=== PATIENT | male | born 1950 | race Caucasian/White ===

== ENCOUNTER 2021-07-30 19:31 | Inpatient (IN) | payer MEDICARE, SELFPAY ==
[~2021-07-30 19:31] MED LIST: Fentanyl 100 MCG/2 ML VIAL ONE; Propofol 1,000 MG/100 ML VIAL IV ONE
[2021-07-30] MEDS ORDERED: Ondansetron PF 4 MG/2 ML Vial IVP PRN (19:36)
[2021-07-30] MEDS ORDERED: Propofol 1,000 MG/100 ML VIAL IV PRN (19:41)
[2021-07-30] MEDS ORDERED: Labetalol HCl 100 MG/20 ML VIAL SLOW IVP PRN (19:44)
[2021-07-30] MEDS ORDERED: fentaNYL Citrate-0.9 % NaCl/PF 100 ML IVPB SCH (20:45)
[2021-07-30] MEDS ORDERED: Ventilator Sedation Protocol 1 EACH FS SCH (20:45)
[2021-07-30] MEDS ORDERED: Fentanyl 100 MCG/2 ML VIAL SLOW IVP SCH (21:15)
[2021-07-30] MEDS ORDERED: Fentanyl BOLUS 250 ML IVPB PRN (21:30)
[2021-07-30] MEDS ORDERED: Morphine 2 MG/ML VIAL SLOW IVP PRN (21:30)
[2021-07-30] MEDS ORDERED: DISCONTINUE PREVIOUS NARCOTIC PAIN MEDICATIONS AND BENZODIAZEPINES FS SCH (21:30)
[2021-07-30] MEDS ORDERED: Propofol BOLUS 1,000 MG/100 ML VIAL IV PRN (21:30)
[2021-07-30] MEDS ORDERED: Lorazepam 2 MG/ML VIAL SLOW IVP PRN (21:30)
[2021-07-30 21:43] LABS: Actual Bicarbonate (HCO3a) 26.7 mEq/L (22-28); Base Excess (BEa) 0.4 mEq/L (-2.0 to +3.0); CO2 Tension 49.6 mmHg (35.0-45.0); Carboxyhemoglobin (COHb) 0.8 gm% (0.0-3.0); Hemoglobin (Hb) 13.9 g/dL (14.0-18.0); O2 Tension (PaO2), arterial 67.8 mmHg (> 70.0); Potassium - ABG Lab 4.3 mmol/L (3.70-5.30); Puncture Site RRA; pH, Arterial 7.35 (7.35-7.45)
[2021-07-30] MEDS: Famotidine/PF 20 mg/2ml Vial SLOW IVP SCH (22:13)
[2021-07-30] MEDS: Acyclovir Sodium 800 MG in Sodium Chloride 0.9% 250 ML 250 ML IVPB SCH (22:13)
[2021-07-30] MEDS: Nicotine 21 MG PATCH TD SCH (22:14)
[2021-07-30] MEDS: Propofol 1,000 MG/100 ML VIAL IV PRN (22:16)
[2021-07-30] MEDS ORDERED: Piperacillin/Tazobactam 3.375 GM in Sodium Chloride 0.9% 100 ML IVPB SCH (23:00)
[2021-07-31] MEDS ORDERED: Dextrose 50% Abboject 50 ML SYRINGE ONE (00:53)
[2021-07-31] MEDS ORDERED: Dextrose 50% Abboject 50 ML SYRINGE SLOW IVP SCH (01:15)
[2021-07-31] MEDS: Propofol 1,000 MG/100 ML VIAL IV PRN ×2 (02:56→06:36)
[2021-07-31 04:06] LABS: Hemoglobin 12.7 g/dL (13.5-17.5); Mean Corpuscular HGB CONC 31.8 g/dL (32.0-36.0); Mean Corpuscular Hemoglobin 30.9 pg (27.0-33.0); Mean Corpuscular Volume 97.3 fl (81.2-95.1); Mean Platelet Volume 10.2 fl (7.4-10.4); Platelet Count 146 10x3/uL (150-450); RBC Distribution Width 13.4 % (11.5-14.5); Red Blood Cell (RBC) Count 4.11 10x6/uL (4.32-5.72); White Blood Cell (WBC) Count 7.3 10x3/uL (3.5-10.5)
[2021-07-31 04:08] LABS: ALT (SGPT) 19 U/L (8-55); AST (SGOT) 16 U/L (5-34); Albumin 3.1 g/dL (3.4-4.8); Alkaline Phosphatase 83 U/L (40-110); Anion Gap 12 mmol/L (10-20); BUN (Urea Nitrogen) 16 mg/dL (8.4-25.7); Bilirubin, Total 0.4 mg/dL (0.2-1.2); CK (CPK) 134 U/L (30-200); Calc. Creatinine Clearance 67 mL/min (70-130); Calcium 9.2 mg/dL (7.8-10.44); Carbon Dioxide 26 mmol/L (23-31); Chloride 104 mmol/L (98-107); Globulin 1.8 g/dL (2.4-3.5); Glucose 85 mg/dL (80-115); Magnesium 2.1 mg/dL (1.6-2.6); Potassium 4.3 mmol/L (3.5-5.1); Protein, Total 4.9 g/dL (5.8-8.1); Sodium 138 mmol/L (136-145)
[2021-07-31] MEDS: Acyclovir Sodium 800 MG in Sodium Chloride 0.9% 250 ML 250 ML IVPB SCH ×3 (05:10→21:42)
[2021-07-31] MEDS: Piperacillin/Tazobactam 3.375 GM in Sodium Chloride 0.9% 100 ML IVPB SCH ×3 (05:10→21:30)
[2021-07-31 07:21] LABS: Band 11 % (5-11); Eosinophils 4 % (0-10); Lymphocytes 15 % (21-51); Reactive Lymphocytes 5 % (0-10)
[2021-07-31 07:24] LABS: Neutrophil 50 % (42-75)
[2021-07-31 07:25] LABS: Monocytes 14 % (0-10); Platelet Morphology Comment Appears Adequate
[2021-07-31 07:26] LABS: MDiff Complete? YES; RBC Morphology Normal
[2021-07-31 07:36] LABS: Actual Bicarbonate (HCO3a) 26.4 mEq/L (22-28); Base Excess (BEa) -0.1 mEq/L (-2.0 to +3.0); CO2 Tension 50.2 mmHg (35.0-45.0); Calcium, Ionized (arterial) 1.11 mmol/L (1.12-1.30); Carboxyhemoglobin (COHb) 0.9 gm% (0.0-3.0); O2 Tension (PaO2), arterial 59.2 mmHg (> 70.0); Potassium - ABG Lab 4.1 mmol/L (3.70-5.30); Puncture Site Other Site; pH, Arterial 7.34 (7.35-7.45)
[2021-07-31] MEDS: Enoxaparin Sodium 40 MG/0.4 ML SYRINGE SC SCH (08:28)
[2021-07-31] MEDS: Famotidine/PF 20 mg/2ml Vial SLOW IVP SCH ×2 (08:28→21:30)
[2021-07-31] MEDS: Dexmedetomidine In 0.9 % NaCl 100 ML IVPB SCH (12:06)
[2021-07-31] MEDS ORDERED: Metoprolol Tartrate 5 MG/5 ML VIAL IVP ONE (16:01)
[2021-07-31] MEDS ORDERED: Metoprolol Tartrate 5 MG/5 ML VIAL ONE (16:04)
[2021-07-31] MEDS: Sodium Chloride 0.9% 1,000 ML IV SCH (16:15)
[2021-07-31 18:21] LABS: Magnesium 2.2 mg/dL (1.6-2.6)
[2021-07-31 20:47] LABS: Magnesium 2.2 mg/dL (1.6-2.6)
[2021-07-31] MEDS: Nicotine 21 MG PATCH TD SCH (21:31)
[2021-08-01] MEDS: Sodium Chloride 0.9% 1,000 ML IV SCH ×3 (02:15→20:33)
[2021-08-01] MEDS: Piperacillin/Tazobactam 3.375 GM in Sodium Chloride 0.9% 100 ML IVPB SCH ×3 (03:50→20:29)
[2021-08-01] MEDS: hydrALAZINE 20 MG/ML VIAL SLOW IVP PRN ×2 (04:15→10:52)
[2021-08-01] MEDS: Acyclovir Sodium 800 MG in Sodium Chloride 0.9% 250 ML 250 ML IVPB SCH ×3 (05:16→21:53)
[2021-08-01] MEDS: Dexmedetomidine In 0.9 % NaCl 100 ML IVPB SCH ×2 (06:36→16:06)
[2021-08-01] MEDS: Metoprolol Tartrate 5 MG/5 ML VIAL IVP PRN ×2 (06:36→14:06)
[2021-08-01 07:12] LABS: Anion Gap 19 mmol/L (10-20); BUN (Urea Nitrogen) 15 mg/dL (8.4-25.7); Calc. Creatinine Clearance 61 mL/min (70-130); Calcium 9.9 mg/dL (7.8-10.44); Carbon Dioxide 22 mmol/L (23-31); Chloride 107 mmol/L (98-107); Glucose 101 mg/dL (80-115); Sodium 144 mmol/L (136-145)
[2021-08-01 07:18] LABS: #Basophils 0.1 10x3/uL (0.0-0.2); #Eosinphils 0.1 10x3/uL (0.0-0.5); #Monocytes 1.1 10x3/uL (0.0-1.1); #Neutrophils 6.2 10x3/uL (1.5-8.4); %Basophils 0.6 % (0.0-2.0); %Lymphocytes 14.2 % (18.0-47.0); %Monocytes 12.8 % (0.0-10.0); %Neutrophils 70.8 % (40.0-75.0); Mean Corpuscular HGB CONC 32.9 g/dL (32.0-36.0); Mean Corpuscular Hemoglobin 31.3 pg (27.0-33.0); Platelet Count 179 10x3/uL (150-450); RBC Distribution Width 13.2 % (11.5-14.5); White Blood Cell (WBC) Count 8.7 10x3/uL (3.5-10.5)
[2021-08-01 07:29] LABS: HIV (1/2) Antibody/Antigen Non-Reactive (NonReactive); HIV 1/2 INDEX 0.09 S/CO (<1.00)
[2021-08-01] MEDS: Enoxaparin Sodium 40 MG/0.4 ML SYRINGE SC SCH (08:12)
[2021-08-01] MEDS: Famotidine/PF 20 mg/2ml Vial SLOW IVP SCH ×2 (08:12→21:53)
[2021-08-01] MEDS: chlordiazePOXIDE HCl 5 MG CAP PO SCH ×2 (14:07→21:53)
[2021-08-01] MEDS: Nicotine 21 MG PATCH TD SCH (21:53)
[2021-08-02] MEDS: Piperacillin/Tazobactam 3.375 GM in Sodium Chloride 0.9% 100 ML IVPB SCH ×3 (03:47→20:25)
[2021-08-02] MEDS: Dexmedetomidine In 0.9 % NaCl 100 ML IVPB SCH (03:54)
[2021-08-02] MEDS: Acyclovir Sodium 800 MG in Sodium Chloride 0.9% 250 ML 250 ML IVPB SCH ×2 (05:16→14:47)
[2021-08-02] MEDS: Sodium Chloride 0.9% 1,000 ML IV SCH ×2 (08:11→20:26)
[2021-08-02] MEDS: Enoxaparin Sodium 40 MG/0.4 ML SYRINGE SC SCH (09:02)
[2021-08-02] MEDS: Famotidine/PF 20 mg/2ml Vial SLOW IVP SCH ×2 (09:02→20:29)
[2021-08-02] MEDS: chlordiazePOXIDE HCl 5 MG CAP PO SCH ×3 (09:16→20:21)
[2021-08-02] MEDS: Metoprolol Tartrate 5 MG/5 ML VIAL IVP PRN (11:09)
[2021-08-02 12:26] LABS: Anion Gap 14 mmol/L (10-20); BUN (Urea Nitrogen) 13 mg/dL (8.4-25.7); Calc. Creatinine Clearance 68 mL/min (70-130); Calcium 9.2 mg/dL (7.8-10.44); Carbon Dioxide 23 mmol/L (23-31); Chloride 109 mmol/L (98-107); Glucose 113 mg/dL (80-115); Magnesium 2.2 mg/dL (1.6-2.6); Potassium 3.8 mmol/L (3.5-5.1); Sodium 142 mmol/L (136-145)
[2021-08-02] MEDS: hydrALAZINE 20 MG/ML VIAL SLOW IVP PRN (12:31)
[2021-08-02] MEDS ORDERED: Gabapentin 100 MG CAP PO SCH (13:30)
[2021-08-02] MEDS ORDERED: Acyclovir 400 mg Tablet PO SCH (17:00)
[2021-08-02] MEDS ORDERED: Acyclovir 800 mg Tablet PO SCH (17:00)
[2021-08-02] MEDS: Metoprolol Tartrate 50 MG TAB PO SCH (20:21)
[2021-08-02] MEDS: Morphine 4 MG/ML VIAL SLOW IVP PRN (20:35)
[2021-08-02] MEDS: Acyclovir 400 mg Tablet PO SCH (20:48)
[2021-08-02] MEDS: Nicotine 21 MG PATCH TD SCH (22:21)
[2021-08-03] MEDS: Piperacillin/Tazobactam 3.375 GM in Sodium Chloride 0.9% 100 ML IVPB SCH ×3 (04:26→21:12)
[2021-08-03] MEDS: Sodium Chloride 0.9% 1,000 ML IV SCH ×2 (06:49→08:19)
[2021-08-03] MEDS ORDERED: methylPREDNISolone Sod Succ/PF 125 MG/2 ML VIAL IVP SCH (08:15)
[2021-08-03] MEDS: Morphine 4 MG/ML VIAL SLOW IVP PRN (08:19)
[2021-08-03] MEDS: Nicotine 21 MG PATCH TD SCH (08:19)
[2021-08-03] MEDS: Famotidine/PF 20 mg/2ml Vial SLOW IVP SCH (08:19)
[2021-08-03] MEDS: chlordiazePOXIDE HCl 5 MG CAP PO SCH ×2 (08:21→13:15)
[2021-08-03] MEDS: Enoxaparin Sodium 40 MG/0.4 ML SYRINGE SC SCH (08:22)
[2021-08-03] MEDS: Gabapentin 100 MG CAP PO SCH (08:22)
[2021-08-03] MEDS: Metoprolol Tartrate 50 MG TAB PO SCH ×2 (08:22→21:11)
[2021-08-03] MEDS: Acyclovir 400 mg Tablet PO SCH ×4 (08:26→21:11)
[2021-08-03] MEDS ORDERED: Budesonide 0.5 MG/2 ML NEB NEB SCH (08:30)
[2021-08-03 09:58] LABS: Anion Gap 17 mmol/L (10-20); BUN (Urea Nitrogen) 11 mg/dL (8.4-25.7); Calc. Creatinine Clearance 60 mL/min (70-130); Calcium 9.2 mg/dL (7.8-10.44); Carbon Dioxide 20 mmol/L (23-31); Chloride 110 mmol/L (98-107); Glucose 207 mg/dL (80-115); Potassium 4.1 mmol/L (3.5-5.1); Sodium 143 mmol/L (136-145)
[2021-08-03] MEDS ORDERED: Budesonide 0.5 MG/2 ML NEB ONE (18:49)
[2021-08-03] MEDS: Budesonide 0.5 MG/2 ML NEB NEB SCH (18:55)
[2021-08-03] MEDS ORDERED: chlordiazePOXIDE HCl 5 MG CAP PO SCH ×2 (21:00→21:30)
[2021-08-03] MEDS: Famotidine 20 MG TAB PO SCH (21:11)
[2021-08-04] MEDS ORDERED: Lorazepam 2 MG/ML VIAL ONE (00:13)
[2021-08-04] MEDS ORDERED: Ziprasidone 20 MG VIAL IM SCH (00:30)
[2021-08-04] MEDS ORDERED: Sterile Water 10 ML ONE (00:33)
[2021-08-04] MEDS: Sodium Chloride 0.9% 1,000 ML IV SCH ×2 (02:15→20:01)
[2021-08-04] MEDS: Piperacillin/Tazobactam 3.375 GM in Sodium Chloride 0.9% 100 ML IVPB SCH ×2 (05:53→17:14)
[2021-08-04] MEDS ORDERED: Budesonide 0.5 MG/2 ML NEB NEB SCH ×3 (08:30→18:30)
[2021-08-04] MEDS ORDERED: chlordiazePOXIDE HCl 5 MG CAP PO SCH (09:00)
[2021-08-04] MEDS ORDERED: methylPREDNISolone Sod Succ 40 MG VIAL IVP SCH (09:00)
[2021-08-04] MEDS ORDERED: Gabapentin 100 MG CAP PO SCH (09:00)
[2021-08-04] MEDS ORDERED: Labetalol HCl 100 MG/20 ML VIAL SLOW IVP PRN (09:48)
[2021-08-04] MEDS ORDERED: Ondansetron PF 4 MG/2 ML Vial IVP PRN (09:52)
[2021-08-04] MEDS ORDERED: Metoprolol Tartrate 5 MG/5 ML VIAL IVP PRN (09:55)
[2021-08-04] MEDS: Acyclovir 400 mg Tablet PO SCH ×5 (10:23→21:01)
[2021-08-04] MEDS: Famotidine 20 MG TAB PO SCH ×3 (10:28→21:02)
[2021-08-04] MEDS: chlordiazePOXIDE HCl 5 MG CAP PO SCH ×2 (10:28→17:15)
[2021-08-04] MEDS: Enoxaparin Sodium 40 MG/0.4 ML SYRINGE SC SCH ×2 (10:29→11:28)
[2021-08-04] MEDS: Metoprolol Tartrate 50 MG TAB PO SCH ×3 (10:29→21:01)
[2021-08-04] MEDS: methylPREDNISolone Sod Succ 40 MG VIAL IVP SCH ×2 (10:30→21:02)
[2021-08-04] MEDS: Nicotine 21 MG PATCH TD SCH (11:27)
[2021-08-04] MEDS: Gabapentin 100 MG CAP PO SCH (11:28)
[2021-08-04] MEDS: Budesonide 0.5 MG/2 ML NEB NEB SCH ×2 (11:32→19:15)
[2021-08-04] MEDS ORDERED: Amlodipine 5 MG TAB PO SCH (16:00)
[2021-08-04 16:08] LABS: Hemoglobin 14.5 g/dL (13.5-17.5); Mean Corpuscular HGB CONC 32.3 g/dL (32.0-36.0); Mean Corpuscular Hemoglobin 31.1 pg (27.0-33.0); Mean Corpuscular Volume 96.4 fl (81.2-95.1); Mean Platelet Volume 10.1 fl (7.4-10.4); Platelet Count 232 10x3/uL (150-450); RBC Distribution Width 13.3 % (11.5-14.5); Red Blood Cell (RBC) Count 4.66 10x6/uL (4.32-5.72)
[2021-08-04] MEDS: Methocarbamol 500 MG TAB PO SCH (21:01)
[2021-08-04] MEDS: risperiDONE 1 MG TAB PO SCH (21:01)
[2021-08-04] MEDS: DULoxetine 30 MG CAP PO SCH (21:02)
[2021-08-04] MEDS: Melatonin 3 MG TAB PO SCH (21:02)
[2021-08-04] MEDS: Atorvastatin Calcium 10 MG TAB PO SCH (21:02)
[2021-08-04] MEDS: ALPRAZolam 0.25 MG TAB PO SCH (21:02)
[2021-08-04] MEDS: lamoTRIgine 100 MG TAB PO SCH (21:02)
[2021-08-05] MEDS: Sodium Chloride 0.9% 1,000 ML IV SCH ×3 (01:26→18:11)
[2021-08-05] MEDS: Piperacillin/Tazobactam 3.375 GM in Sodium Chloride 0.9% 100 ML IVPB SCH ×4 (01:27→22:06)
[2021-08-05 05:13] LABS: Anion Gap 16 mmol/L (10-20); BUN (Urea Nitrogen) 20 mg/dL (8.4-25.7); Calc. Creatinine Clearance 64 mL/min (70-130); Calcium 9.5 mg/dL (7.8-10.44); Carbon Dioxide 25 mmol/L (23-31); Chloride 108 mmol/L (98-107); Glucose 131 mg/dL (80-115); Sodium 144 mmol/L (136-145)
[2021-08-05] MEDS: Levothyroxine Sodium 25 MCG TAB PO SCH (05:17)
[2021-08-05] MEDS: Budesonide 0.5 MG/2 ML NEB NEB SCH ×2 (06:20→19:00)
[2021-08-05] MEDS ORDERED: Amlodipine 5 MG TAB PO SCH (09:00)
[2021-08-05] MEDS: Acyclovir 400 mg Tablet PO SCH ×4 (11:11→21:53)
[2021-08-05] MEDS: lamoTRIgine 100 MG TAB PO SCH ×2 (11:12→22:12)
[2021-08-05] MEDS: Gabapentin 400 MG CAP PO SCH (11:12)
[2021-08-05] MEDS: Metoprolol Tartrate 50 MG TAB PO SCH (11:12)
[2021-08-05] MEDS: Famotidine 20 MG TAB PO SCH ×2 (11:12→21:53)
[2021-08-05] MEDS: Methocarbamol 500 MG TAB PO SCH ×3 (11:13→22:06)
[2021-08-05] MEDS: Enoxaparin Sodium 40 MG/0.4 ML SYRINGE SC SCH (11:13)
[2021-08-05] MEDS: Nicotine 21 MG PATCH TD SCH (11:13)
[2021-08-05] MEDS: methylPREDNISolone Sod Succ 40 MG VIAL IVP SCH ×3 (11:14→22:12)
[2021-08-05] MEDS ORDERED: Ziprasidone 20 MG VIAL IM SCH (21:45)
[2021-08-05] MEDS: ALPRAZolam 0.25 MG TAB PO SCH (21:51)
[2021-08-05] MEDS: Atorvastatin Calcium 10 MG TAB PO SCH (21:52)
[2021-08-05] MEDS: DULoxetine 30 MG CAP PO SCH (21:52)
[2021-08-05] MEDS: Sotalol HCl 80 MG TAB PO SCH (22:00)
[2021-08-05] MEDS: risperiDONE 1 MG TAB PO SCH (22:04)
[2021-08-05] MEDS: Melatonin 3 MG TAB PO SCH (22:04)
[2021-08-05] MEDS ORDERED: Sterile Water 10 ML VIAL FS PRN (22:15)
[2021-08-06] MEDS: Budesonide 0.5 MG/2 ML NEB NEB SCH ×3 (06:20→22:30)
[2021-08-06] MEDS: Levothyroxine Sodium 25 MCG TAB PO SCH (06:48)
[2021-08-06] MEDS: Piperacillin/Tazobactam 3.375 GM in Sodium Chloride 0.9% 100 ML IVPB SCH ×3 (06:50→22:17)
[2021-08-06] MEDS: Enoxaparin Sodium 40 MG/0.4 ML SYRINGE SC SCH (10:48)
[2021-08-06] MEDS: Amlodipine 5 MG TAB PO SCH (10:48)
[2021-08-06] MEDS: Acyclovir 400 mg Tablet PO SCH ×4 (10:48→22:14)
[2021-08-06] MEDS: Sodium Chloride 0.9% 1,000 ML IV SCH ×2 (10:48→14:39)
[2021-08-06] MEDS: Methocarbamol 500 MG TAB PO SCH ×4 (10:49→22:26)
[2021-08-06] MEDS: Famotidine 20 MG TAB PO SCH ×2 (10:49→21:34)
[2021-08-06] MEDS: Gabapentin 400 MG CAP PO SCH (10:49)
[2021-08-06] MEDS: Sotalol HCl 80 MG TAB PO SCH ×2 (10:49→21:35)
[2021-08-06] MEDS: Nicotine 21 MG PATCH TD SCH (10:49)
[2021-08-06] MEDS: lamoTRIgine 100 MG TAB PO SCH ×2 (10:49→21:34)
[2021-08-06] MEDS: methylPREDNISolone Sod Succ 40 MG VIAL IVP SCH ×2 (10:49→21:35)
[2021-08-06] MEDS: Haloperidol Lactate 5 MG/ML VIAL IM PRN (21:17)
[2021-08-06] MEDS: risperiDONE 1 MG TAB PO SCH (21:34)
[2021-08-06] MEDS: Atorvastatin Calcium 10 MG TAB PO SCH (21:34)
[2021-08-06] MEDS: ALPRAZolam 0.25 MG TAB PO SCH (21:34)
[2021-08-06] MEDS: DULoxetine 30 MG CAP PO SCH (21:34)
[2021-08-06] MEDS: Melatonin 3 MG TAB PO SCH (21:34)
[2021-08-07 05:13] LABS: Anion Gap 15 mmol/L (10-20); BUN (Urea Nitrogen) 26 mg/dL (8.4-25.7); Calc. Creatinine Clearance 59 mL/min (70-130); Calcium 9.3 mg/dL (7.8-10.44); Carbon Dioxide 27 mmol/L (23-31); Chloride 108 mmol/L (98-107); Glucose 97 mg/dL (80-115); Potassium 4.5 mmol/L (3.5-5.1); Sodium 145 mmol/L (136-145)
[2021-08-07] MEDS: Piperacillin/Tazobactam 3.375 GM in Sodium Chloride 0.9% 100 ML IVPB SCH ×2 (05:26→13:09)
[2021-08-07] MEDS: Sodium Chloride 0.9% 1,000 ML IV SCH ×3 (05:27→16:40)
[2021-08-07] MEDS: Levothyroxine Sodium 25 MCG TAB PO SCH (06:16)
[2021-08-07] MEDS: Budesonide 0.5 MG/2 ML NEB NEB SCH ×2 (07:00→18:41)
[2021-08-07] MEDS: Methocarbamol 500 MG TAB PO SCH ×3 (08:11→21:42)
[2021-08-07] MEDS: Sotalol HCl 80 MG TAB PO SCH ×2 (08:11→21:42)
[2021-08-07] MEDS: lamoTRIgine 100 MG TAB PO SCH ×2 (08:11→21:41)
[2021-08-07] MEDS: Amlodipine 5 MG TAB PO SCH (08:11)
[2021-08-07] MEDS: Acyclovir 400 mg Tablet PO SCH ×4 (08:11→21:40)
[2021-08-07] MEDS: Famotidine 20 MG TAB PO SCH ×2 (08:11→21:41)
[2021-08-07] MEDS: methylPREDNISolone Sod Succ 40 MG VIAL IVP SCH (08:12)
[2021-08-07] MEDS: Nicotine 21 MG PATCH TD SCH (08:12)
[2021-08-07] MEDS: Enoxaparin Sodium 40 MG/0.4 ML SYRINGE SC SCH (08:12)
[2021-08-07] MEDS: Gabapentin 400 MG CAP PO SCH (08:12)
[2021-08-07] MEDS: ALPRAZolam 0.25 MG TAB PO SCH (20:20)
[2021-08-07] MEDS: Atorvastatin Calcium 10 MG TAB PO SCH (21:40)
[2021-08-07] MEDS: DULoxetine 30 MG CAP PO SCH (21:41)
[2021-08-07] MEDS: risperiDONE 1 MG TAB PO SCH (21:42)
[2021-08-07] MEDS: Melatonin 3 MG TAB PO SCH (21:42)
[2021-08-08] MEDS: Piperacillin/Tazobactam 3.375 GM in Sodium Chloride 0.9% 100 ML IVPB SCH ×2 (00:27→02:21)
[2021-08-08] MEDS: methylPREDNISolone Sod Succ 40 MG VIAL IVP SCH ×2 (00:27→09:16)
[2021-08-08] MEDS: Sodium Chloride 0.9% 1,000 ML IV SCH ×2 (02:22→11:39)
[2021-08-08] MEDS: Levothyroxine Sodium 25 MCG TAB PO SCH (05:31)
[2021-08-08] MEDS: Budesonide 0.5 MG/2 ML NEB NEB SCH ×2 (06:35→18:50)
[2021-08-08] MEDS: Acetaminophen 325 MG TAB PO PRN (06:49)
[2021-08-08 08:26] LABS: #Basophils 0.1 10x3/uL (0.0-0.2); #Eosinphils 0.1 10x3/uL (0.0-0.5); #Monocytes 0.9 10x3/uL (0.0-1.1); #Neutrophils 4.8 10x3/uL (1.5-8.4); %Eosinophils 1.6 % (0.0-6.0); %Lymphocytes 29.5 % (18.0-47.0); %Monocytes 10.7 % (0.0-10.0); Hemoglobin 13.5 g/dL (13.5-17.5); Mean Corpuscular HGB CONC 32.1 g/dL (32.0-36.0); Mean Corpuscular Volume 96.6 fl (81.2-95.1); Mean Platelet Volume 9.9 fl (7.4-10.4); Platelet Count 241 10x3/uL (150-450); RBC Distribution Width 13.3 % (11.5-14.5); Red Blood Cell (RBC) Count 4.35 10x6/uL (4.32-5.72); White Blood Cell (WBC) Count 8.6 10x3/uL (3.5-10.5)
[2021-08-08 09:05] LABS: ALT (SGPT) 37 U/L (8-55); AST (SGOT) 16 U/L (5-34); Albumin 3.6 g/dL (3.4-4.8); Alkaline Phosphatase 63 U/L (40-110); Anion Gap 14 mmol/L (10-20); BUN (Urea Nitrogen) 28 mg/dL (8.4-25.7); Bilirubin, Total 0.4 mg/dL (0.2-1.2); Calc. Creatinine Clearance 51 mL/min (70-130); Calcium 9.2 mg/dL (7.8-10.44); Carbon Dioxide 28 mmol/L (23-31); Chloride 105 mmol/L (98-107); Glucose 97 mg/dL (80-115); Potassium 4.1 mmol/L (3.5-5.1); Protein, Total 5.6 g/dL (5.8-8.1); Sodium 143 mmol/L (136-145)
[2021-08-08] MEDS: Gabapentin 400 MG CAP PO SCH (09:16)
[2021-08-08] MEDS: Methocarbamol 500 MG TAB PO SCH ×3 (09:16→20:08)
[2021-08-08] MEDS: Sotalol HCl 80 MG TAB PO SCH ×2 (09:16→20:09)
[2021-08-08] MEDS: Acyclovir 400 mg Tablet PO SCH ×4 (09:16→20:07)
[2021-08-08] MEDS: lamoTRIgine 100 MG TAB PO SCH ×2 (09:16→20:08)
[2021-08-08] MEDS: Enoxaparin Sodium 40 MG/0.4 ML SYRINGE SC SCH (09:16)
[2021-08-08] MEDS: Amlodipine 5 MG TAB PO SCH (09:16)
[2021-08-08] MEDS: Famotidine 20 MG TAB PO SCH ×2 (09:16→20:08)
[2021-08-08] MEDS: Nicotine 21 MG PATCH TD SCH ×2 (10:26→11:37)
[2021-08-08] MEDS: DULoxetine 30 MG CAP PO SCH (20:07)
[2021-08-08] MEDS: Atorvastatin Calcium 10 MG TAB PO SCH (20:07)
[2021-08-08] MEDS: ALPRAZolam 0.25 MG TAB PO SCH (20:07)
[2021-08-08] MEDS: Melatonin 3 MG TAB PO SCH (20:08)
[2021-08-08] MEDS: risperiDONE 1 MG TAB PO SCH (20:09)
[2021-08-09] MEDS: Sodium Chloride 0.9% 1,000 ML IV SCH ×3 (03:09→20:15)
[2021-08-09] MEDS: Levothyroxine Sodium 25 MCG TAB PO SCH (05:00)
[2021-08-09] MEDS: Acetaminophen 325 MG TAB PO PRN (05:11)
[2021-08-09 05:52] LABS: Anion Gap 16 mmol/L (10-20); BUN (Urea Nitrogen) 27 mg/dL (8.4-25.7); Calc. Creatinine Clearance 55 mL/min (70-130); Calcium 9.3 mg/dL (7.8-10.44); Carbon Dioxide 26 mmol/L (23-31); Chloride 106 mmol/L (98-107); Glucose 101 mg/dL (80-115); Potassium 4.1 mmol/L (3.5-5.1); Sodium 144 mmol/L (136-145)
[2021-08-09] MEDS: Budesonide 0.5 MG/2 ML NEB NEB SCH ×2 (06:30→20:00)
[2021-08-09] MEDS: Acyclovir 400 mg Tablet PO SCH ×4 (08:34→20:15)
[2021-08-09] MEDS: Sotalol HCl 80 MG TAB PO SCH ×2 (08:34→20:15)
[2021-08-09] MEDS: predniSONE 20 MG TAB PO SCH (08:34)
[2021-08-09] MEDS: Famotidine 20 MG TAB PO SCH ×2 (08:35→20:15)
[2021-08-09] MEDS: Gabapentin 400 MG CAP PO SCH (08:35)
[2021-08-09] MEDS: Enoxaparin Sodium 40 MG/0.4 ML SYRINGE SC SCH (08:36)
[2021-08-09] MEDS: Amlodipine 5 MG TAB PO SCH (08:36)
[2021-08-09] MEDS: Methocarbamol 500 MG TAB PO SCH ×3 (08:36→20:15)
[2021-08-09] MEDS: lamoTRIgine 100 MG TAB PO SCH ×2 (08:36→20:15)
[2021-08-09] MEDS: Nicotine 21 MG PATCH TD SCH (09:42)
[2021-08-09] MEDS ORDERED: Haloperidol Lactate 5 MG/ML VIAL IM SCH (20:00)
[2021-08-09] MEDS: DULoxetine 30 MG CAP PO SCH (20:15)
[2021-08-09] MEDS: ALPRAZolam 0.25 MG TAB PO SCH (20:15)
[2021-08-09] MEDS: Melatonin 3 MG TAB PO SCH (20:15)
[2021-08-09] MEDS: Atorvastatin Calcium 10 MG TAB PO SCH (20:15)
[2021-08-09] MEDS: risperiDONE 1 MG TAB PO SCH (20:15)
[2021-08-10] MEDS: Budesonide 0.5 MG/2 ML NEB NEB SCH ×2 (06:25→19:00)
[2021-08-10] MEDS: Acetaminophen 325 MG TAB PO PRN (06:40)
[2021-08-10] MEDS: Levothyroxine Sodium 25 MCG TAB PO SCH (06:40)
[2021-08-10] MEDS: Sotalol HCl 80 MG TAB PO SCH ×2 (07:57→20:35)
[2021-08-10] MEDS: predniSONE 20 MG TAB PO SCH (07:57)
[2021-08-10] MEDS: lamoTRIgine 100 MG TAB PO SCH ×2 (07:58→20:37)
[2021-08-10] MEDS: Amlodipine 5 MG TAB PO SCH (07:58)
[2021-08-10] MEDS: Gabapentin 400 MG CAP PO SCH (07:58)
[2021-08-10] MEDS: Methocarbamol 500 MG TAB PO SCH ×3 (07:59→20:37)
[2021-08-10] MEDS: Famotidine 20 MG TAB PO SCH ×2 (07:59→20:36)
[2021-08-10] MEDS: Sodium Chloride 0.9% 1,000 ML IV SCH ×2 (13:44→17:48)
[2021-08-10] MEDS: Enoxaparin Sodium 40 MG/0.4 ML SYRINGE SC SCH (14:04)
[2021-08-10] MEDS: Nicotine 21 MG PATCH TD SCH (14:04)
[2021-08-10] MEDS: risperiDONE 1 MG TAB PO SCH (20:35)
[2021-08-10] MEDS: Melatonin 3 MG TAB PO SCH (20:36)
[2021-08-10] MEDS: Atorvastatin Calcium 10 MG TAB PO SCH (20:36)
[2021-08-10] MEDS: DULoxetine 30 MG CAP PO SCH (20:36)
[2021-08-10] MEDS: ALPRAZolam 0.25 MG TAB PO SCH (20:38)
[2021-08-11] MEDS: Haloperidol Lactate 5 MG/ML VIAL IM PRN ×2 (00:22→07:48)
[2021-08-11] MEDS: Sodium Chloride 0.9% 1,000 ML IV SCH ×2 (02:00→14:39)
[2021-08-11 04:54] LABS: Anion Gap 12 mmol/L (10-20); BUN (Urea Nitrogen) 32 mg/dL (8.4-25.7); Calc. Creatinine Clearance 58 mL/min (70-130); Calcium 8.5 mg/dL (7.8-10.44); Carbon Dioxide 27 mmol/L (23-31); Chloride 106 mmol/L (98-107); Glucose 84 mg/dL (80-115); Sodium 141 mmol/L (136-145)
[2021-08-11] MEDS: Levothyroxine Sodium 25 MCG TAB PO SCH (06:30)
[2021-08-11] MEDS: Budesonide 0.5 MG/2 ML NEB NEB SCH ×2 (06:30→20:04)
[2021-08-11] MEDS: Enoxaparin Sodium 40 MG/0.4 ML SYRINGE SC SCH (08:32)
[2021-08-11] MEDS: Famotidine 20 MG TAB PO SCH ×2 (08:33→20:54)
[2021-08-11] MEDS: Amlodipine 5 MG TAB PO SCH (08:33)
[2021-08-11] MEDS: predniSONE 20 MG TAB PO SCH (08:33)
[2021-08-11] MEDS: Gabapentin 400 MG CAP PO SCH (08:33)
[2021-08-11] MEDS: Sotalol HCl 80 MG TAB PO SCH ×2 (08:34→20:54)
[2021-08-11] MEDS: Methocarbamol 500 MG TAB PO SCH ×5 (08:34→21:10)
[2021-08-11] MEDS: lamoTRIgine 100 MG TAB PO SCH ×2 (08:34→20:54)
[2021-08-11 11:27] VITALS: BMI 28.3
[2021-08-11] MEDS: Nicotine 21 MG PATCH TD SCH (12:00)
[2021-08-11] MEDS: Acetaminophen 325 MG TAB PO PRN ×2 (13:56→20:54)
[2021-08-11] MEDS: Atorvastatin Calcium 10 MG TAB PO SCH (20:53)
[2021-08-11] MEDS: ALPRAZolam 0.25 MG TAB PO SCH (20:53)
[2021-08-11] MEDS: Melatonin 3 MG TAB PO SCH (20:53)
[2021-08-11] MEDS: risperiDONE 1 MG TAB PO SCH (20:53)
[2021-08-11] MEDS: DULoxetine 30 MG CAP PO SCH (20:59)
[2021-08-12] MEDS: Sodium Chloride 0.9% 1,000 ML IV SCH (01:15)
[2021-08-12] MEDS: Levothyroxine Sodium 25 MCG TAB PO SCH (05:42)
[2021-08-12] MEDS: Budesonide 0.5 MG/2 ML NEB NEB SCH (06:55)
[2021-08-12] MEDS: Enoxaparin Sodium 40 MG/0.4 ML SYRINGE SC SCH (08:18)
[2021-08-12] MEDS: predniSONE 20 MG TAB PO SCH (08:19)
[2021-08-12] MEDS: lamoTRIgine 100 MG TAB PO SCH (08:19)
[2021-08-12] MEDS: Gabapentin 400 MG CAP PO SCH (08:19)
[2021-08-12] MEDS: Sotalol HCl 80 MG TAB PO SCH (08:19)
[2021-08-12] MEDS: Amlodipine 5 MG TAB PO SCH (08:19)
[2021-08-12] MEDS: Acetaminophen 325 MG TAB PO PRN (08:20)
[2021-08-12] MEDS: Famotidine 20 MG TAB PO SCH (08:20)
[2021-08-12] MEDS: Methocarbamol 500 MG TAB PO SCH (08:21)
[2021-08-12 13:21] VITALS: BP 175/100; TEMP 97.6
== END 2021-08-12 14:55 | disposition home or self-care (01) | DRG 896 ==
LOC: CSHICU 19:31 → CSHTELE 08-02 19:28 → UNDODISIN 08-03 14:22
PROVIDERS: ADMIT Student in an Organized Health Care Education/Training Program; ATTEND Internal Medicine
PROC: 5A1935Z Respiratory Ventilation, Less than 24 Consecutive Hours (ICD-10-PCS; principal; 2021-07-30)
DX: F19.10 Other psychoactive substance abuse, uncomplicated (principal); J18.9 Pneumonia, unspecified organism; J96.00 Acute respiratory failure, unspecified whether with hypoxia or hypercapnia; N17.9 Acute kidney failure, unspecified; G93.49 Other encephalopathy; J44.0 Chronic obstructive pulmonary disease with (acute) lower respiratory infection; J44.1 Chronic obstructive pulmonary disease with (acute) exacerbation; F31.9 Bipolar disorder, unspecified; B02.9 Zoster without complications; I48.91 Unspecified atrial fibrillation; E03.9 Hypothyroidism, unspecified; Z78.1 Physical restraint status; N18.9 Chronic kidney disease, unspecified; I12.9 Hypertensive chronic kidney disease with stage 1 through stage 4 chronic kidney disease, or unspecified chronic kidney disease; J20.9 Acute bronchitis, unspecified; Z91.14 Patient's other noncompliance with medication regimen; Z79.890 Hormone replacement therapy; Z79.899 Other long term (current) drug therapy
CPT/HCPCS: 36415; 36416; 36600; 71045; 80048; 80053; 80178; 82550; 82805; 83735; 84443; 85025; 85027; 87389; 93005; 93010; 93306; 94002; 94003; 94640; 94760; J0133; J0360; J1630; J1650; J2060; J2270; J2543; J2704; J2920; J2930; J3010; J3486; J3490; J7050; J7512; J7626; S0028